=== PATIENT | male | born 1960 | race Caucasian/White ===

== ENCOUNTER 2023-07-10 20:15 | Emergency (ER) | payer MEDICARE, MEDICAID ==
[~2023-07-10] VITALS: Wt 133.4 kg
[~2023-07-10 20:15] MED LIST: ALDACTONE25 MG PO; ASPIRIN81 M1 PO; BUMETANIDE1 MG PO; COREG25 MG PO; Imdur SA60 MG PO; LISINOPRIL-HYDR1 TA2 PO; LOSARTAN POTAS100 MG PO; NITROSTAT0.4 MG SL; NKHM; POTASSIUM CHLO20 ME3 PO; PRAVASTATIN SOD40 MG PO; SYNTHROID25 MCG PO
== END 2023-07-10 22:57 ==
LOC: ED 20:18
DX: I46.9 Cardiac arrest, cause unspecified (principal); I25.2 Old myocardial infarction; I50.9 Heart failure, unspecified; I11.0 Hypertensive heart disease with heart failure; E03.9 Hypothyroidism, unspecified; Z88.5 Allergy status to narcotic agent; Z95.5 Presence of coronary angioplasty implant and graft; Z98.890 Other specified postprocedural states